=== PATIENT | male | born 1995 | race Caucasian/White ===

== ENCOUNTER 2017-07-23 06:55 | Emergency (ER) | payer BC, OTHER ==
--- NOTE | 2017-07-23 07:02 | EDPHY ---
H & P Stated Complaint: cough, fever nausea. dx with mono Time Seen by Provider: 07/23/17 07:00 HPI/ROS: CHIEF COMPLAINT: Cough, fever, malaise HISTORY OF PRESENT ILLNESS: The patient presents to the ED with a several week history of cough, fever and malaise. The patient tells me he was treated with antibiotics for possible strep throat in the beginning of June. The patient 's symptoms of sore throat seem to improve, the patient reportedly developed recurrent symptoms of a cough and myalgias around . He has been seen a number of times at the hospital [facility]. He has had a number of negative strep tests and reportedly was diagnosed with mono. The patient complains of severe myalgias and chest pain secondary to coughing. The patient reportedly has been at the hospital [facility] nearly every day this week. Prior to his illness 4 weeks ago, the patient reports no significant past medical history. REVIEW OF SYSTEMS: A comprehensive 10 point review of systems is otherwise negative aside from elements mentioned in the history of present illness. Source: Patient - Personal History Current Tetanus/Diphtheria Vaccine: Yes Current Tetanus Diphtheria and Acellular Pertussis (TDAP): Yes - Medical/Surgical History Hx Asthma: Yes Hx Chronic Respiratory Disease: No Hx Diabetes: No Hx Cardiac Disease: No Hx Renal Disease: No Hx Cirrhosis: No Hx Alcoholism: No Hx HIV/AIDS: No Hx Splenectomy or Spleen Trauma: No Other PMH: asthma - Social History Smoking Status: Never smoked - Physical Exam Exam: General Appearance: Alert, mild discomfort secondary to pain Eyes: Pupils equal and round no pallor or injection ENT, Mouth: Mucous membranes moist Respiratory: Tachypneic Cardiovascular: Tachycardic Gastrointestinal: Soft, no focal tenderness to palpation Neurological: A&O, normal motor function, normal sensory exam, normal cranial nerves Skin: Warm and dry, no rashes Musculoskeletal: Neck is supple nontender Extremities: symmetrical, full range of motion Constitutional: Initial Vital Signs Temperature (C) 39.4 C H 07/23/17 06:56 Heart Rate 133 H 07/23/17 06:56 Respiratory Rate 20 07/23/17 06:56 Blood Pressure 91/74 L 07/23/17 06:56 O2 Sat (%) 95 07/23/17 06:56 O2 Delivery Mode Room Air Allergies/Adverse Reactions: clonidine Allergy (Verified 07/23/17 07:01) Home Medications: Medication Instructions Recorded Albuterol [Ventolin Hfa Inhaler] 200 puffs IH 07/23/17 Ondansetron Odt [Zofran Odt] 4 mg PO Q4PRN PRN #20 tab 07/23/17 Medical Decision Making - Diagnostics Imaging Results: Imaging Impressions Chest X-Ray 07/23/17 07:07 Impression: Asymmetric prominence of the right heart. This could be due to patient rotation versus right heart enlargement. Recommend repeat in the [place] chest x-ray. Dr. Frank discussed these findings by telephone with Sami Peraza on 07/23 at 09:26. Chest X-Ray 07/23/17 09:34 Impression: 1. No pneumonia. 2. Normal heart borders. Chest x-ray PA/lateral: Two view images reviewed by myself, negative for focal infiltrate or acute abnormality. ED Course/Re-evaluation: The patient presents to the ED with symptoms of an upper respiratory infection which have been present for varying degrees over the past 4 weeks. The patient did have a round of antibiotics early in the course of his illness. He had some improvement of his symptoms but developed recurrent severe symptoms over the past several days. The patient arrives to the emergency department febrile tachycardic and mildly dehydrated. The patient had an IV established. He received 3 L normal saline. He received Tylenol and Zofran. His chest x-ray demonstrates no evidence of an acute infiltrate. The patient's flu test in respiratory pathogen panel PCR negative. The patient reportedly was diagnosed with mononucleosis at the hospital [facility] earlier in the week. The patient's laboratory studies are within normal limits, he has no evidence of a hepatitis. The patient underwent serial examinations in the ED over a 3 hr period. At 10: 00 a.m.: The patient reports he is feeling much better. The patient was offered admission to the hospital secondary for observation today however prefers to go home. I feel this is reasonable. The patient is comfortable returning for any recurrent severe symptoms. His initial venous lactate is very reassuring at 1.5. Differential Diagnosis: Differential diagnosis considered includes viral syndrome, influenza, bacteremia , metabolic abnormality, pneumonia - Data Points Laboratory Results: Laboratory Results 07/23/17 07:15 07/23/17 07:15 07/23/17 07/23/17 07/23/17 07:47 07:15 07:15 WBC RBC Hgb Hct MCV MCH MCHC RDW Plt Count MPV Neut % (Auto) Lymph % (Auto) [place] % (Auto) Eos % (Auto) Baso % (Auto) Nucleat RBC Rel Count Absolute Neuts (auto) Absolute Lymphs (auto) Absolute Monos (auto) Absolute Eos (auto) Absolute Basos (auto) Absolute Nucleated RBC Immature Gran % Immature Gran # VBG Lactic Acid 1.5 mmol/L mmol/L (0.7-2.1) Sodium Potassium Chloride Carbon Dioxide Anion Gap BUN Creatinine Estimated GFR Glucose Calcium Total Bilirubin 0.4 mg/dL mg/dL (0.1-1.4) Conjugated Bilirubin 0.1 mg/dL mg/dL (0.0-0.5) Unconjugated Bilirubin 0.3 mg/dL mg/dL (0.0-1.1) AST 28 IU/L IU/L (17-59) ALT 52 IU/L IU/L (21-72) Alkaline Phosphatase 77 IU/L IU/L (38-126) Total Protein 7.9 g/dL g/dL (6.3-8.2) Albumin 4.8 g/dL g/dL (3.5-5.0) Nasal Influenza A PCR NEGATIVE FOR FLU A (NEGATIVE) Nasal Influenza B PCR NEGATIVE FOR FLU B (NEGATIVE) 07/23/17 07/23/17 07:15 07:15 WBC 13.19 10^3/uL H 10^3/uL (3.80-9.50) RBC 5.68 10^6/uL 10^6/uL (4.40-6.38) Hgb 15.9 g/dL g/dL (13.7-17.5) Hct 47.5 % % (40.0-51.0) MCV 83.6 fL fL (81.5-99.8) MCH 28.0 pg pg (27.9-34.1) MCHC 33.5 g/dL g/dL (32.4-36.7) RDW 12.5 % % (11.5-15.2) Plt Count 399 10^3/uL 10^3/uL (150-400) MPV 8.8 fL fL (8.7-11.7) Neut % (Auto) 78.3 % H % (39.3-74.2) Lymph % (Auto) 6.9 % L % (15.0-45.0) [place] % (Auto) 13.9 % H % (4.5-13.0) Eos % (Auto) 0.2 % L % (0.6-7.6) Baso % (Auto) 0.2 % L % (0.3-1.7) Nucleat RBC Rel Count 0.0 % % (0.0-0.2) Absolute Neuts (auto) 10.33 10^3/uL H 10^3/uL (1.70-6.50) Absolute Lymphs (auto) 0.91 10^3/uL L 10^3/uL (1.00-3.00) Absolute Monos (auto) 1.83 10^3/uL H 10^3/uL (0.30-0.80) Absolute Eos (auto) 0.02 10^3/uL L 10^3/uL (0.03-0.40) Absolute Basos (auto) 0.03 10^3/uL 10^3/uL (0.02-0.10) Absolute Nucleated RBC 0.00 10^3/uL 10^3/uL (0-0.01) Immature Gran % 0.5 % % (0.0-1.1) Immature Gran # 0.07 10^3/uL 10^3/uL (0.00-0.10) VBG Lactic Acid Sodium 140 mEq/L mEq/L (134-144) Potassium 4.2 mEq/L mEq/L (3.5-5.2) Chloride 100 mEq/L mEq/L (97-110) Carbon Dioxide 24 mEq/l mEq/l (22-31) Anion Gap 16 mEq/L mEq/L (8-16) BUN 12 mg/dL mg/dL (7-23) Creatinine 1.2 mg/dL mg/dL (0.7-1.3) Estimated GFR > 60 Glucose 100 mg/dL mg/dL (70-100) Calcium 9.9 mg/dL mg/dL (8.5-10.4) Total Bilirubin Conjugated Bilirubin Unconjugated Bilirubin AST ALT Alkaline Phosphatase Total Protein Albumin Nasal Influenza A PCR Nasal Influenza B PCR Microbiology Results: MICROBIOLOGY 07/23/17 07:15 Nasal, Sinus - Other Respiratory Panel (PCR) - Final No Organism Detected Medications Given: Discontinued Medications Acetaminophen (Tylenol) 1,000 mg PO EDNOW ONE Stop: 07/23/17 07:12 Last Admin: 07/23/17 07:12 Dose: 1,000 mg Sodium Chloride (Ns) 1,000 mls @ 0 mls/hr IV ONCE ONE; Wide Open PRN Reason: Protocol Stop: 07/23/17 07:07 Last Admin: 07/23/17 07:15 Dose: 1,000 mls Sodium Chloride (Ns) 1,000 mls @ 0 mls/hr IV ONCE ONE; Wide Open PRN Reason: Protocol Stop: 07/23/17 07:07 Last Admin: 07/23/17 07:16 Dose: 1,000 mls Sodium Chloride (Ns) 1,000 mls @ 3,000 mls/hr IV ONCE ONE Stop: 07/23/17 08:53 Last Admin: 07/23/17 08:34 Dose: 1,000 mls Ibuprofen (Motrin) 600 mg PO EDNOW ONE Stop: 07/23/17 07:12 Last Admin: 07/23/17 07:12 Dose: 600 mg Departure - Departure Disposition: Home, Routine, Self-Care Clinical Impression: Viral illness, Chronic obstructive pulmonary disease with acute exacerbation Condition: Good Instructions: Viral Syndrome (ED) Additional Instructions: 1. Take Ibuprofen or Motrin 600 mg by mouth three times a day. 2. Zofran as needed for nausea 3. Tylenol 650 mg every 6 hr for fever and pain 4. Please follow-up with your primary care provider for a recheck in the next several days. 5. Please return to the ED immediately for any worsening symptoms, uncontrolled pain, difficulty breathing, vomiting or other concerns Referrals: Susan Galvez MD [Primary Care Provider] - As per Instructions
[2017-07-23] MEDS ORDERED: IBUPROFEN 600 MG TAB PO ONE ×2 (07:05→07:11)
[2017-07-23] MEDS ORDERED: ACETAMINOPHEN 500 MG TAB ONE (07:05)
[2017-07-23] MEDS ORDERED: NS 1,000 ML IV ONE ×3 (07:06→08:34)
[2017-07-23] MEDS ORDERED: ACETAMINOPHEN 500 MG TAB PO ONE (07:11)
[2017-07-23 07:26] LABS: % IMMATURE GRANULYOCYTES 0.5 % (0.0-1.1); ABSOLUTE IMMATURE GRANULOCYTES 0.07 10^3/uL (0.00-0.10); ADD DIFF? NO; ADD MORPH? NO; ADD SCAN? NO; ATYPICAL LYMPHOCYTE FLAG 20 (0-99); FRAGMENT RBC FLAG 0 (0-99); HEMATOCRIT 47.5 % (40.0-51.0); HEMOGLOBIN 15.9 g/dL (13.7-17.5); LEFT SHIFT FLG 10 (0-99); LIPEMIA HEMOLYSIS FLAG 80 (0-99); MEAN CELL HEMOGLOBIN CONCENTR. 33.5 g/dL (32.4-36.7); MEAN CELL VOLUME 83.6 fL (81.5-99.8); MEAN PLATELET VOLUME 8.8 fL (8.7-11.7); PLATELET CLUMPS FLAG 0 (0-99); PLATELET COUNT 399 10^3/uL (150-400); RED BLOOD CELL COUNT 5.68 10^6/uL (4.40-6.38); RED CELL DISTRIBUTION WIDTH 12.5 % (11.5-15.2)
[2017-07-23 07:58] LABS: ANION GAP 16 mEq/L (8-16); CALCIUM 9.9 mg/dL (8.5-10.4); CARBON DIOXIDE 24 mEq/l (22-31); CHLORIDE 100 mEq/L (97-110); CREATININE 1.2 mg/dL (0.7-1.3); GLOMERULAR FILTRATION RATE > 60; GLUCOSE 100 mg/dL (70-100); POTASSIUM 4.2 mEq/L (3.5-5.2); SODIUM 140 mEq/L (134-144)
[2017-07-23 09:00] LABS: ALBUMIN 4.8 g/dL (3.5-5.0); BILIRUBIN,TOTAL 0.4 mg/dL (0.1-1.4); BILIRUBIN-CONJUGATED 0.1 mg/dL (0.0-0.5); BILIRUBIN-UNCONJUGATED 0.3 mg/dL (0.0-1.1); TOTAL PROTEIN 7.9 g/dL (6.3-8.2)
[2017-07-23 10:15] VITALS: RESP 18
[2017-07-23 11:06] VITALS: BP 120/54; PULSE 104; TEMP 98.1; O2SAT 97
== END 2017-07-23 11:07 | disposition home or self-care (01) ==
DX: J44.1 Chronic obstructive pulmonary disease with (acute) exacerbation (principal); B34.9 Viral infection, unspecified; E86.9 Volume depletion, unspecified